=== PATIENT | male | born 1955 | race Caucasian/White ===

== ENCOUNTER → 2021-08-23 | Outpatient (CLI) | payer MEDICARE ==
[~2021-08-23] MED LIST: HYDROCODONE-AP1 EAC6 PO; IBUPROFEN 200200 M1 PO; LISINOPRIL10 MG PO; NICOTINE TRANSD21 M1
== END ==
LOC: M.RAD 14:34
PROVIDERS: ATTEND Internal Medicine
DX: J15.8 Pneumonia due to other specified bacteria (principal)